=== PATIENT | female | born 1995 | race Caucasian/White ===

== ENCOUNTER 2017-01-28 13:04 | Emergency (ER) | payer BC ==
[~2017-01-28] VITALS: Ht 149.9 cm; Wt 52.2 kg
[2017-01-28] MEDS ORDERED: ONDANSETRON ODT 4 MG ONE (15:22)
[2017-01-28 16:12] LABS: HEMATOCRIT 41.1 % (34.6-47.8); HEMOGLOBIN 13.9 g/dL (11.7-16.4)
[2017-01-28 16:24] LABS: BLOOD UREA NITROGEN 9 mg/dL (7-18)
[2017-01-28 16:43] LABS: ASPARTATE AMINO TRANSFERASE 10 U/L (15-37)
[2017-01-28 17:02] VITALS: BP 99/50
== END 2017-01-28 17:11 | disposition home or self-care (01) ==
LOC: ED 16:55
DX: O26.891 Other specified pregnancy related conditions, first trimester (principal); Z3A.08 8 weeks gestation of pregnancy; R10.2 Pelvic and perineal pain; G89.29 Other chronic pain; R11.10 Vomiting, unspecified
CPT/HCPCS: 36415; 76801; 80053; 81001; 84702; 85025; 87086; 99285

== ENCOUNTER 2019-12-16 09:53 | Emergency (ER) | payer BC, MEDICAID ==
[~2019-12-16] VITALS: Ht 149.9 cm; Wt 54.6 kg
[2019-12-16 10:13] VITALS: BP 127/68
--- NOTE | 2019-12-16 10:32 | NUR ---
SMALL LESIONS BILATERAL HANDS AND FOREARM FROM A CAT
== END 2019-12-16 11:20 | disposition home or self-care (01) ==
LOC: ED 10:40
DX: S60.512A Abrasion of left hand, initial encounter (principal); S60.511A Abrasion of right hand, initial encounter; W55.01XA Bitten by cat, initial encounter; Y93.89 Activity, other specified; Y92.89 Other specified places as the place of occurrence of the external cause; Y99.8 Other external cause status
CPT/HCPCS: 99281